=== PATIENT | female | born 1950 | race Caucasian/White ===

== ENCOUNTER 2016-09-01 10:50 | Inpatient (IN) | payer OTHER ==
[~2016-09-01] VITALS: Ht 162.6 cm; Wt 116.5 kg
[~2016-09-01 10:50] MED LIST: ADULT LOW DOSE81 M1 PO; ALPRAZOLAM0.5 MG PO; ASCORBIC ACID500 M3 PO; ASPIR-TRIN325 M1 PO; ASPIRIN EC325 MG PO; Arthrotec 75 PO; Ascorbic Acid,Ester- PO; Aspirin E.C. PO; CELEBREX200 MG PO; CRESTOR5 MG PO; DICLOFENAC-MIS1 EAC3 PO; FELODIPINE ER10 M1 PO; FELODIPINE ER10 MG PO; FEOSOL325 MG PO; FERROUS SULFAT325 MG PO; Flexeril PO; HABITROL,NICODE21 MG TD; HYDROCODON-ACE1 EAC7 PO; JANUVIA100 MG PO; LANTUS 3 M100 UNITS1 SC; LO-DOSE ASPIRIN81 M1 PO; Lipitor PO; NOVOLOG MI100 UNIT/4 SC; OMEPRAZOLE20 M2 PO; PREMPRO PO; Percocet 5/325,Endoc PO; Plendil PO; PriLOSEC PO; Prilosec PO; SENOKOT S,PE1 TABLET PO; TRAMADOL HCL50 MG PO; TUMERIC PO; TURMERIC PO; TURMERIC500 MG PO; VITAMIN C1000 MG PO; VITAMIN D1000 INTUN PO; VITAMIN D31000 UNIT PO; Vicodin,Lortab 5/500 PO; Vitamin D PO; Xanax PO; ZESTORETIC 20-1 EAC1 PO; Zestoretic,Prinzide PO
[2016-09-01 11:35] LABS: HEMATOCRIT 33.1 % (36.0-46.0); MCH 30.3 PG (29.0-34.0); MCHC 31.7 G/DL (30.0-36.0); MCV 95.7 FL (83-99); MEAN PLAT.VOLUME 10.2 uM^3 (9.5-12.4); PLATELET COUNT 222 K/uL (156-360); RBC DIS.WIDTH-CV 16.1 % (11.8-14.6); RED BLOOD COUNT 3.46 M/uL (3.80-5.20); WHITE BLOOD COUNT 14.1 K/uL (4.1-10.2)
[2016-09-01 11:40] LABS: CHLORIDE 106 mEq/L (99-109); POTASSIUM 4.4 mEq/L (3.7-5.4); SODIUM 139 mEq/L (136-147)
[2016-09-01 11:42] LABS: BASOPHIL COUNT 0.1 K/uL (0-0.1); EOSINOPHIL (%) 0.1 % (0-5); GLUCOSE 232 mg/dL (70-99); IMMATURE GRANULOCYTE (%) 0.2 % (0.0-0.7); IMMATURE GRANULOCYTE COUNT 0.3 K/uL; LYMPHOCYTE COUNT 1.4 K/uL (1.0-2.8); MONOCYTE COUNT 1.3 K/uL (0-0.8); NEUTROPHIL (%) 80.7 % (45-76); NEUTROPHIL COUNT 11.4 K/uL (1.8-6.4)
[2016-09-01 11:43] LABS: ANION GAP 11 MEQ/L (2-14)
[2016-09-01 11:45] LABS: GFR ESTIMATE (CALCULATED) > 59 mL/min/
[2016-09-01 11:46] LABS: UREA NITROGEN (BUN) 18 mg/dL (9-23)
[2016-09-01 11:51] LABS: TROP-I INTERPRETATION NEGATIVE; TROPONIN-I 0.02 ng/mL (0.0-0.30)
[2016-09-01] MEDS ORDERED: VOLTAREN75 MG PO (12:54)
[2016-09-01] MEDS ORDERED: INVOKANA100 MG PO (12:56)
[2016-09-01] MEDS ORDERED: HUMALOG100 UNIT/2 SC (12:59)
[2016-09-01] MEDS ORDERED: CYTOTEC200 MCG PO (13:00)
[2016-09-01] MEDS ORDERED: NOVOLIN,HU100 UNITS/ SC (13:01)
[2016-09-01] MEDS ORDERED: NEURONTIN300 MG PO (13:02)
[2016-09-01] MEDS ORDERED: FOLIC ACID1 MG PO (13:03)
[2016-09-01] MEDS ORDERED: VITAMIN E400 UNIT PO (13:07)
[2016-09-01] MEDS ORDERED: PROAIR HFA8.5 GM IH (13:07)
[2016-09-01] MEDS ORDERED: MELATONIN10 M4 SL (13:12)
[2016-09-01] MEDS ORDERED: TYLENOL PM1 CAPLET PO (13:13)
[2016-09-01 17:59] LABS: POINT-OF-CARE METER ID UU14100415
[2016-09-01 19:43] VITALS: BP 136/60
[2016-09-02] VITALS (7 sets, daily range): BP systolic 101–156; BP diastolic 46–78
[2016-09-02 06:45] LABS: HEMATOCRIT 30.7 % (36.0-46.0); MCH 29.3 PG (29.0-34.0); MCHC 30.3 G/DL (30.0-36.0); MCV 96.8 FL (83-99); MEAN PLAT.VOLUME 10.8 uM^3 (9.5-12.4); PLATELET COUNT 214 K/uL (156-360); RBC DIS.WIDTH-CV 16.2 % (11.8-14.6); RBC DIS.WIDTH-SD 57.7 % (39-53); RED BLOOD COUNT 3.17 M/uL (3.80-5.20); WHITE BLOOD COUNT 10.8 K/uL (4.1-10.2)
[2016-09-02 07:30] LABS: POINT-OF-CARE METER ID UU13113698
[2016-09-02 09:02] LABS: ALKALINE PHOSPHATASE 57 IU/L (3-129); ANION GAP 10 MEQ/L (2-14); CHLORIDE 106 MEQ/L (99-109); GFR ESTIMATE (CALCULATED) 59 mL/min/; GLUCOSE 176 mg/dL (70-99); POTASSIUM 4.3 MEQ/L (3.7-5.4); SAMPLE HEMOLYSIS CHECK 0; SAMPLE ICTERIC CHECK 0; SAMPLE LIPEMIA CHECK 0; SODIUM 141 MEQ/L (136-147); TOTAL BILIRUBIN 1.9 MG/DL (0.0-1.0); UREA NITROGEN (BUN) 22 mg/dL (9-23)
[2016-09-02 10:41] LABS: POINT-OF-CARE METER ID UU13113698
[2016-09-02 10:59] LABS: TROP-I INTERPRETATION NEGATIVE; TROPONIN-I 0.02 ng/mL (0.0-0.30)
[2016-09-02 16:23] LABS: POINT-OF-CARE METER ID UU13113698
[2016-09-03 06:35] LABS: HEMATOCRIT 32.4 % (36.0-46.0); MCH 29.1 PG (29.0-34.0); MCHC 29.9 G/DL (30.0-36.0); MCV 97.3 FL (83-99); MEAN PLAT.VOLUME 10.6 uM^3 (9.5-12.4); PLATELET COUNT 236 K/uL (156-360); RBC DIS.WIDTH-CV 16.2 % (11.8-14.6); RBC DIS.WIDTH-SD 57.4 % (39-53); RED BLOOD COUNT 3.33 M/uL (3.80-5.20); WHITE BLOOD COUNT 9.5 K/uL (4.1-10.2)
[2016-09-03 07:00] LABS: EOSINOPHIL (%) 2.9 % (0-5); EOSINOPHIL COUNT 0.3 K/uL (0-0.3); IMMATURE GRANULOCYTE (%) 0.1 % (0.0-0.7); LYMPHOCYTE COUNT 2.2 K/uL (1.0-2.8); MONOCYTE (%) 7.8 % (3-12); MONOCYTE COUNT 0.7 K/uL (0-0.8); NEUTROPHIL (%) 65.7 % (45-76); NEUTROPHIL COUNT 6.2 K/uL (1.8-6.4)
[2016-09-03 07:10] LABS: ALKALINE PHOSPHATASE 55 IU/L (3-129); ANION GAP 11 MEQ/L (2-14); CHLORIDE 106 MEQ/L (99-109); GFR ESTIMATE (CALCULATED) > 59 mL/min/; POTASSIUM 3.9 MEQ/L (3.7-5.4); SAMPLE HEMOLYSIS CHECK 0; SAMPLE ICTERIC CHECK 0; SAMPLE LIPEMIA CHECK 0; SODIUM 142 MEQ/L (136-147); TOTAL BILIRUBIN 1.6 MG/DL (0.0-1.0); UREA NITROGEN (BUN) 27 mg/dL (9-23)
[2016-09-03 07:14] LABS: GLUCOSE 115 mg/dL (70-99)
[2016-09-03 08:50] VITALS: BP 152/66
[2016-09-03 12:01] VITALS: BP 134/60
[2016-09-03 15:20] VITALS: BP 142/62
[2016-09-03 20:00] VITALS: BP 133/63
[2016-09-03 21:09] LABS: POINT-OF-CARE METER ID UU13113698
[2016-09-04 00:42] VITALS: BP 126/78
[2016-09-04 05:31] VITALS: BP 116/56
[2016-09-04 07:42] LABS: POINT-OF-CARE METER ID UU13113698
[2016-09-04 08:05] VITALS: BP 146/63
[2016-09-04 09:10] LABS: EOSINOPHIL (%) 0.5 % (0-5); EOSINOPHIL COUNT 0.1 K/uL (0-0.3); HEMATOCRIT 34.1 % (36.0-46.0); IMMATURE GRANULOCYTE (%) 0.3 % (0.0-0.7); LYMPHOCYTE COUNT 1.5 K/uL (1.0-2.8); MCH 29.9 PG (29.0-34.0); MCHC 30.8 G/DL (30.0-36.0); MCV 97.2 FL (83-99); MEAN PLAT.VOLUME 10.5 uM^3 (9.5-12.4); MONOCYTE (%) 5.5 % (3-12); MONOCYTE COUNT 0.6 K/uL (0-0.8); NEUTROPHIL (%) 78.9 % (45-76); NEUTROPHIL COUNT 8.3 K/uL (1.8-6.4); PLATELET COUNT 275 K/uL (156-360); RBC DIS.WIDTH-CV 15.8 % (11.8-14.6); RBC DIS.WIDTH-SD 56.2 % (39-53); RED BLOOD COUNT 3.51 M/uL (3.80-5.20); WHITE BLOOD COUNT 10.5 K/uL (4.1-10.2)
[2016-09-04 09:37] LABS: ANION GAP 11 MEQ/L (2-14); CHLORIDE 105 MEQ/L (99-109); GFR ESTIMATE (CALCULATED) > 59 mL/min/; GLUCOSE 126 mg/dL (70-99); POTASSIUM 4.5 MEQ/L (3.7-5.4); SAMPLE HEMOLYSIS CHECK 0; SAMPLE ICTERIC CHECK 0; SAMPLE LIPEMIA CHECK 0; SODIUM 143 MEQ/L (136-147); UREA NITROGEN (BUN) 33 mg/dL (9-23)
[2016-09-04 11:28] LABS: POINT-OF-CARE METER ID UU13113698
[2016-09-04 12:05] VITALS: BP 134/74
[2016-09-04 16:00] VITALS: BP 135/63
[2016-09-04 20:00] VITALS: BP 142/76
[2016-09-05 04:00] VITALS: BP 115/68
[2016-09-05 05:20] LABS: HEMATOCRIT 32.1 % (36.0-46.0); MCH 29.2 PG (29.0-34.0); MCHC 30.2 G/DL (30.0-36.0); MCV 96.7 FL (83-99); MEAN PLAT.VOLUME 10.5 uM^3 (9.5-12.4); PLATELET COUNT 268 K/uL (156-360); RBC DIS.WIDTH-CV 15.8 % (11.8-14.6); RBC DIS.WIDTH-SD 56.2 % (39-53); RED BLOOD COUNT 3.32 M/uL (3.80-5.20); WHITE BLOOD COUNT 9.8 K/uL (4.1-10.2)
[2016-09-05 05:52] LABS: ANION GAP 8 MEQ/L (2-14); CHLORIDE 107 MEQ/L (99-109); GFR ESTIMATE (CALCULATED) 52 mL/min/; POTASSIUM 4.3 MEQ/L (3.7-5.4); SAMPLE HEMOLYSIS CHECK 0; SAMPLE ICTERIC CHECK 0; SAMPLE LIPEMIA CHECK 0; SODIUM 141 MEQ/L (136-147); UREA NITROGEN (BUN) 39 mg/dL (9-23)
[2016-09-05 06:04] LABS: GLUCOSE 85 mg/dL (70-99)
[2016-09-05 07:54] LABS: POINT-OF-CARE METER ID UU13113698; POINT-OF-CARE USER ID NUTSLF44
[2016-09-05 09:00] VITALS: BP 134/56
[2016-09-05 11:39] LABS: POINT-OF-CARE METER ID UU13113698; POINT-OF-CARE USER ID NUTSLF44
[2016-09-05 12:15] VITALS: BP 129/68
[2016-09-05 12:30] VITALS: BP 108/59
[2016-09-05 15:09] VITALS: BP 134/58
[2016-09-05 16:30] LABS: POINT-OF-CARE USER ID NUTSLF44
[2016-09-05 19:38] VITALS: BP 145/65
[2016-09-06 00:11] VITALS: BP 131/68
[2016-09-06 04:00] VITALS: BP 115/73
[2016-09-06 06:33] LABS: HEMATOCRIT 33.2 % (36.0-46.0); MCH 28.6 PG (29.0-34.0); MCHC 29.8 G/DL (30.0-36.0); PLATELET COUNT 272 K/uL (156-360); RBC DIS.WIDTH-CV 15.6 % (11.8-14.6); RBC DIS.WIDTH-SD 55.2 % (39-53); RED BLOOD COUNT 3.46 M/uL (3.80-5.20)
[2016-09-06 07:08] LABS: ANION GAP 10 MEQ/L (2-14); CHLORIDE 104 MEQ/L (99-109); GFR ESTIMATE (CALCULATED) 59 mL/min/; GLUCOSE 73 mg/dL (70-99); POTASSIUM 4.4 MEQ/L (3.7-5.4); SAMPLE HEMOLYSIS CHECK 0; SAMPLE ICTERIC CHECK 0; SAMPLE LIPEMIA CHECK 0; SODIUM 140 MEQ/L (136-147); UREA NITROGEN (BUN) 37 mg/dL (9-23)
[2016-09-06 07:15] VITALS: BP 135/66
[2016-09-06 07:42] LABS: POINT-OF-CARE USER ID NUTSLF44
[2016-09-06 10:19] LABS: POINT-OF-CARE METER ID UU13113781
[2016-09-06 11:05] VITALS: BP 130/60
[2016-09-06 15:35] VITALS: BP 133/59
[2016-09-06 17:22] LABS: POINT-OF-CARE USER ID NUTSLF44
[2016-09-06 21:09] VITALS: BP 149/65
[2016-09-07 00:27] VITALS: BP 141/65
[2016-09-07 04:15] VITALS: BP 127/60
[2016-09-07 06:17] LABS: BASOPHIL COUNT 0.1 K/uL (0-0.1); EOSINOPHIL (%) 1.4 % (0-5); EOSINOPHIL COUNT 0.1 K/uL (0-0.3); HEMATOCRIT 33.2 % (36.0-46.0); IMMATURE GRANULOCYTE (%) 0.3 % (0.0-0.7); LYMPHOCYTE COUNT 2.3 K/uL (1.0-2.8); MCH 29.5 PG (29.0-34.0); MCHC 30.7 G/DL (30.0-36.0); MEAN PLAT.VOLUME 10.3 uM^3 (9.5-12.4); MONOCYTE (%) 7.1 % (3-12); MONOCYTE COUNT 0.7 K/uL (0-0.8); PLATELET COUNT 275 K/uL (156-360); RBC DIS.WIDTH-CV 15.7 % (11.8-14.6); RBC DIS.WIDTH-SD 55.1 % (39-53); RED BLOOD COUNT 3.46 M/uL (3.80-5.20); WHITE BLOOD COUNT 9.1 K/uL (4.1-10.2)
[2016-09-07 06:45] LABS: ALKALINE PHOSPHATASE 53 IU/L (3-129); ANION GAP 10 MEQ/L (2-14); CHLORIDE 108 MEQ/L (99-109); GFR ESTIMATE (CALCULATED) 52 mL/min/; GLUCOSE 63 mg/dL (70-99); POTASSIUM 4.1 MEQ/L (3.7-5.4); SAMPLE HEMOLYSIS CHECK 0; SAMPLE ICTERIC CHECK 0; SAMPLE LIPEMIA CHECK 0; SODIUM 143 MEQ/L (136-147); UREA NITROGEN (BUN) 32 mg/dL (9-23)
[2016-09-07 06:46] LABS: TOTAL BILIRUBIN 0.8 MG/DL (0.0-1.0)
[2016-09-07 07:50] LABS: POINT-OF-CARE USER ID ENVKC36
[2016-09-07] MEDS ORDERED: ADVAIR HFA120 INHALA IH (07:58)
[2016-09-07] MEDS ORDERED: BACTRIM,SEPT1 TABLET PO (07:58)
[2016-09-07] MEDS ORDERED: FUROSEMIDE20 MG PO (07:58)
[2016-09-07] MEDS ORDERED: PREDNISONE20 MG PO (07:58)
[2016-09-07] MEDS ORDERED: TRIAMCINOLONE A15 G2 TP (07:58)
[2016-09-07 08:23] VITALS: BP 149/66
== END 2016-09-07 12:00 | disposition home or self-care (01) | DRG 191 ==
LOC: EME 10:50 → 4EAST 14:53 → EDOF 14:53 → 4EAST 19:16
PROVIDERS: Emergency Medicine; Internal Medicine Cardiovascular Disease; Nurse Practitioner Adult Health; Pediatrics; Physician Assistant; Physician Assistant Medical
DX: J44.1 Chronic obstructive pulmonary disease with (acute) exacerbation (principal); Z68.41 Body mass index [BMI] 40.0-44.9, adult; I50.9 Heart failure, unspecified; E66.01 Morbid (severe) obesity due to excess calories; J20.9 Acute bronchitis, unspecified; E11.9 Type 2 diabetes mellitus without complications; I10 Essential (primary) hypertension; F32.9 Major depressive disorder, single episode, unspecified; F41.9 Anxiety disorder, unspecified; I34.0 Nonrheumatic mitral (valve) insufficiency; K21.9 Gastro-esophageal reflux disease without esophagitis; G89.29 Other chronic pain; Z79.4 Long term (current) use of insulin; Z96.651 Presence of right artificial knee joint; Z90.2 Acquired absence of lung [part of]; Z90.49 Acquired absence of other specified parts of digestive tract; Z87.891 Personal history of nicotine dependence; Z85.118 Personal history of other malignant neoplasm of bronchus and lung
CPT/HCPCS: 71020; 71275; 80048; 80053; 82948; 83880; 84484; 85025; 85027; 93005; 93306; 94640; 94640 76; 94799; 99202; 99281; 99284; J1644; J1815; J1940; J7512

== ENCOUNTER 2017-09-06 05:32 | Day surgery (SDC) | payer OTHER ==
[~2017-09-06] VITALS: Ht 162.6 cm; Wt 99.5 kg
[~2017-09-06 05:32] MED LIST changes: +ADVAIR HFA120 INHALA IH; +BACTRIM,SEPT1 TABLET PO; +CINNAMON500 MG PO; +CYTOTEC200 MCG PO; +FOLIC ACID1 MG PO; +FUROSEMIDE20 MG PO; +HUMALOG100 UNIT/2 SC; +INVOKANA100 MG PO; +IRON325 M1 PO; +MELATONIN10 M4 SL; +NEURONTIN300 MG PO; +NOVOLIN,HU100 UNITS/ SC; +NOVOLOG MI100 UNIT/2 SC; +PREDNISONE20 MG PO; +PROAIR HFA8.5 GM IH; +TRIAMCINOLONE A15 G2 TP; +TYLENOL PM1 CAPLET PO; +VITAMIN E400 UNIT PO; +VOLTAREN75 MG PO; +ZOCOR20 MG PO
[2017-09-06 07:02] VITALS: BP 138/64
[2017-09-06 11:05] VITALS: BP 140/50
[2017-09-06 12:00] VITALS: BP 140/50
[2017-09-06 13:50] VITALS: BP 151/48
[2017-09-06 14:03] VITALS: BP 140/65
[2017-09-06 20:27] VITALS: BP 149/63
[2017-09-07 00:03] VITALS: BP 127/59
[2017-09-07 04:38] VITALS: BP 134/62
[2017-09-07 07:25] LABS: HEMATOCRIT 28.8 % (36.0-46.0); HEMOGLOBIN 8.5 G/DL (11.9-15.5); MCV 82.3 FL (83-99)
[2017-09-07 07:38] VITALS: BP 157/71
[2017-09-07 08:01] VITALS: BP 157/78
[2017-09-07] MEDS ORDERED: ASPIR-LOW81 MG PO (08:18)
== END 2017-09-07 11:17 | disposition home or self-care (01) ==
LOC: SDC 05:32 → 2SOUTH 09:05 → 3EAST 09:05 → ENRESERV 09:30 → SDC 12:06 → ENRESERV 12:31 → SDC 12:49 → 3EAST 13:48 → SDC 15:34 → 3EAST 09-07 11:17
PROVIDERS: Orthopaedic Surgery
PROC: 0RRK0J7 Replacement of Left Shoulder Joint with Synthetic Substitute, Glenoid Surface, Open Approach (ICD-10-PCS; principal; 2017-09-06)
DX: M19.012 Primary osteoarthritis, left shoulder (principal); I10 Essential (primary) hypertension; E11.9 Type 2 diabetes mellitus without complications; F41.8 Other specified anxiety disorders; Z85.41 Personal history of malignant neoplasm of cervix uteri; Z85.118 Personal history of other malignant neoplasm of bronchus and lung; Z88.0 Allergy status to penicillin; Z79.4 Long term (current) use of insulin; Z87.891 Personal history of nicotine dependence
CPT/HCPCS: 82948; 85014; 85018; 86850; 86900; 86901; 94640; 94640 76; 94799; 99202; C1776; G0378; J0131; J1100; J1815; J1885; J2250; J2270; J2710; J2795; J3010; J7030; J7050; J7120